=== PATIENT | male | born 1975 | race Caucasian/White ===

== ENCOUNTER 2023-05-02 06:23 | Day surgery (SDC) | payer OTHER ==
[~2023-05-02] VITALS: Ht 177.8 cm; Wt 82.1 kg
[2023-05-02] MEDS ORDERED: fentaNYL CITRATE/PF 100 MCG/2 ML AMP ONE (07:59)
[2023-05-02] MEDS ORDERED: MIDAZOLAM HCL 2 MG/2 ML VIAL (VERSED) ONE (08:00)
[2023-05-02] MEDS ORDERED: MEPERIDINE HCL/PF 25 MG/ML DISP.SYRIN IVP PRN (08:15)
[2023-05-02] MEDS ORDERED: HYDROmorphone 1 MG/ML INJ. CARTRIDGE IVP PRN ×2 (08:15)
[2023-05-02] MEDS ORDERED: METOCLOPRAMIDE HCL 10 MG/2 ML VIAL IVP PRN (08:15)
[2023-05-02] MEDS ORDERED: ONDANSETRON HCL 4 MG/2 ML VIAL IVP PRN (08:15)
[2023-05-02] MEDS ORDERED: ceFAZolin SODIUM 2 GM VIAL ONE (08:20)
[2023-05-02] MEDS ORDERED: ONDANSETRON HCL 4 MG/2 ML VIAL ONE (08:20)
[2023-05-02] MEDS ORDERED: SEVOFLURANE 15 MIN GAS INH ONE (08:20)
[2023-05-02] MEDS ORDERED: PROPOFOL 200MG/ 20ML VIAL (DIPRIVAN) IV ONE (08:20)
[2023-05-02] MEDS ORDERED: LR 1,000 ML IV.SOLN IV ONE (08:20)
[2023-05-02] MEDS ORDERED: ROCURONIUM BROMIDE 10 MG/ML (ZEMURON) ONE (08:20)
[2023-05-02] MEDS ORDERED: NS IRRIG SOLN 1000 ML IR ONE (08:20)
[2023-05-02] MEDS ORDERED: DEXAMETHASONE SOD PHOSPHATE 4 MG/ML VIAL ONE (08:20)
[2023-05-02] MEDS ORDERED: KETOROLAC TROMETHAMINE 30 MG VIAL ONE (08:20)
[2023-05-02] MEDS ORDERED: SUGAMMADEX SODIUM 200 MG/2 ML VIAL IV ONE (08:20)
[2023-05-02 08:31] VITALS: O2SAT 99
[2023-05-02] MEDS ORDERED: BUPIVACAINE LIPOSOME/PF 266 MG/20 ML VIAL INFIL ONE (10:05)
[2023-05-02 13:44] VITALS: BP_SYST 131; PULSE 69; RESP 16
== END 2023-05-02 13:07 | disposition home or self-care (01) ==
LOC: SDS 06:23 → SMU 06:24 → SDS 13:07
PROVIDERS: ATTEND Surgery
DX: K40.91 Unilateral inguinal hernia, without obstruction or gangrene, recurrent (principal); K42.9 Umbilical hernia without obstruction or gangrene; Z88.0 Allergy status to penicillin
CPT/HCPCS: 87081; 49651; 49591; 84132; 36415; 88302; C1781 ×2; J3490; C9290; J1100; J1885; J3465; J2405; J2704; J3010; J7120; C1727; S2900